=== PATIENT | male | born 1960 | race Caucasian/White ===

== ENCOUNTER 2022-12-19 09:43 | Outpatient (CLI) | payer OTHER, SELFPAY | END 2022-12-19 09:44 | disposition home or self-care (01) | PROVIDERS: PCP Family Medicine; Visit Provider Internal Medicine Clinical Cardiac Electrophysiology | DX: I48.91 Unspecified atrial fibrillation (principal) | CPT/HCPCS: 93225; 93226 ==

== ENCOUNTER 2023-04-06 14:25 | Emergency (ER) | payer OTHER, SELFPAY ==
[2023-04-06] VITALS (26 sets, daily range): BP systolic 91–113; BP diastolic 48–101; PULSE 59–147; RESP 18; TEMP 36.3; O2SAT 91–99; BMI 25.8
--- NOTE | 2023-04-06 14:44 | ED.GENADULT ---
HPI - General Adult General Chief complaint: Arrhythmia/Palpitations Stated complaint: Afib Time Seen by Provider: 04/06/23 14:36 History of Present Illness HPI narrative: Patient here from [facility] in [place] today for afib/ elevated heart rate. He was scheduled to have a colonoscopy which did not happen. HR was 160's there, given 1500 cc normal saline brought HR down to 140's. Sunday night was last oral intake per pt and . Off coumadin for the last 5 days for procedure. Feeling fatigued. Per patient and , perhaps flipped last night. has had 3-4 cardioversions in the past. 62-year-old man presenting to the emergency department with concern of rapid heart rate-atrial fibrillation in the 160s as noted in clinic prior to colonoscopy this morning. Was feeling much more fatigued last night. Notes a history of going in out of atrial fibrillation typically unaware though fatigue and sound in his voice is a tip-off to his . Two days ago was feeling quite well, putting up outdoor [place] lights. Has been going through colonoscopy prep anticipating colonoscopy this morning. Has not taken ?my drugs? this morning. This would include metoprolol. Coumadin has been held for 5 days. Has a history of cardioversions as well as cardiac ablations. Has been struggling with longstanding lightheadedness. This is in the midst of extensive workup apparently at [facility]. Related Data Home Medications Medication Instructions Recorded Confirmed atorvastatin 40 mg tablet 40 mg PO DAILY 04/06/23 04/06/23 cefadroxil 500 mg capsule 500 mg PO BID 04/06/23 04/06/23 metoprolol tartrate 25 mg tablet 25 mg PO BID 04/06/23 04/06/23 warfarin 1 mg tablet mg PO 04/06/23 warfarin 5 mg tablet 5 mg PO DAILY 04/06/23 04/06/23 Allergies Allergy/AdvReac Type Severity Reaction Status Date / Time No Known Drug Allergies Allergy Verified 04/06/23 14:30 Review of Systems Status of ROS: Reports: 6 or more systems reviewed and unremarkable except as noted in History and below [facility] Social History Smoking Status: Former smoker How often do you have a drink containing alcohol: 2-3 times a week How many standard drinks containing alcohol do you have on a typical day: 1 or 2 AUDIT-C Alcohol total score: 3 Non-prescribed substance use: denies use Exam Narrative: Exam Narrative: Pleasant. NAD. Defers somewhat to spouse in conversation. Cranial nerves 2-12 look to be intact. Easily conversant. Breathing easily. Skin is warm and dry. Extremities are without edema. Moving all extremities without difficulty. Lungs are clear. Heart is tachycardic. Abdomen is soft and nontender. Const: Vital Signs, click to edit/add: Vital Signs - 24 hr 04/06/23 14:31 04/06/23 14:36 04/06/23 14:37 Temperature 97.4 F L Pulse Rate 126 H 118 H Pulse Rate [Right Pulse Oximeter] 147 H Respiratory Rate 18 Blood Pressure 113/101 H Blood Pressure [Ri ght Upper Arm] 93/66 Pulse Oximetry 94 97 98 Oxygen Delivery Me thod Room Air 04/06/23 14:45 04/06/23 14:47 04/06/23 15:00 Temperature Pulse Rate 104 H 110 H 109 H Pulse Rate [Right Pulse Oximeter] Respiratory Rate Blood Pressure 107/94 H Blood Pressure [Ri ght Upper Arm] Pulse Oximetry 93 92 98 Oxygen Delivery Me thod 04/06/23 15:01 04/06/23 15:06 04/06/23 15:12 Temperature Pulse Rate 116 H 94 89 Pulse Rate [Right Pulse Oximeter] Respiratory Rate Blood Pressure 96/83 105/48 L 100/69 Blood Pressure [Ri ght Upper Arm] Pulse Oximetry 98 98 97 Oxygen Delivery Me thod 04/06/23 15:15 04/06/23 15:16 04/06/23 15:22 Temperature Pulse Rate 83 78 84 Pulse Rate [Right Pulse Oximeter] Respiratory Rate Blood Pressure 91/70 107/68 Blood Pressure [Ri ght Upper Arm] Pulse Oximetry 96 98 97 Oxygen Delivery Me thod 04/06/23 15:30 04/06/23 15:31 04/06/23 15:42 Temperature Pulse Rate 80 72 87 Pulse Rate [Right Pulse Oximeter] Respiratory Rate Blood Pressure 94/65 104/68 Blood Pressure [Ri ght Upper Arm] Pulse Oximetry 98 97 96 Oxygen Delivery Me thod 04/06/23 15:45 04/06/23 15:52 04/06/23 16:00 Temperature Pulse Rate 101 H 85 91 Pulse Rate [Right Pulse Oximeter] Respiratory Rate Blood Pressure 104/70 Blood Pressure [Ri ght Upper Arm] Pulse Oximetry 97 99 99 Oxygen Delivery Me thod 04/06/23 16:02 04/06/23 16:12 04/06/23 16:15 Temperature Pulse Rate 121 H 95 98 Pulse Rate [Right Pulse Oximeter] Respiratory Rate Blood Pressure 106/78 112/77 Blood Pressure [Ri ght Upper Arm] Pulse Oximetry 98 91 97 Oxygen Delivery Me thod 04/06/23 16:22 04/06/23 16:23 04/06/23 16:30 Temperature Pulse Rate 118 H 100 101 H Pulse Rate [Right Pulse Oximeter] Respiratory Rate Blood Pressure 112/77 Blood Pressure [Ri ght Upper Arm] Pulse Oximetry 98 98 97 Oxygen Delivery Me thod 04/06/23 16:31 04/06/23 16:41 Temperature Pulse Rate 64 59 L Pulse Rate [Right Pulse Oximeter] Respiratory Rate Blood Pressure 99/70 105/57 L Blood Pressure [Ri ght Upper Arm] Pulse Oximetry 98 98 Oxygen Delivery Me thod Documenting provider has reviewed patient's vital signs: yes Course Vital Signs Vital signs: Initial Vital Signs Temperature 97.4 F L 04/06/23 14:31 Temperature Source Temporal Artery Scan 04/06/23 14:31 Pulse Rate 147 H 04/06/23 14:31 Pulse Rhythm Regular 04/06/23 14:31 Respiratory Rate 18 04/06/23 14:31 Blood Pressure 93/66 04/06/23 14:31 Blood Pressure Mean 75 04/06/23 14:31 Blood Pressure Position Sitting 04/06/23 14:31 Pulse Oximetry 94 04/06/23 14:31 Oxygen Delivery Method Room Air 04/06/23 14:31 Vital Signs Temperature 97.4 F L 04/06/23 14:31 Pulse Rate 147 H 04/06/23 14:31 Respiratory Rate 18 04/06/23 14:31 Blood Pressure 93/66 04/06/23 14:31 Pulse Oximetry 94 04/06/23 14:31 Oxygen Delivery Method Room Air 04/06/23 14:31 Temperature 97.4 F L 04/06/23 14:31 Pulse Rate 59 L 04/06/23 16:41 Respiratory Rate 18 04/06/23 14:31 Blood Pressure 105/57 L 04/06/23 16:41 Pulse Oximetry 98 04/06/23 16:41 Oxygen Delivery Method Room Air 04/06/23 14:31 Medications Administered Medications: Discontinued Medications Generic Name Dose Route Start Last Admin Trade Name Jose PRN Reason Stop Dose Admin Diltiazem HCl 20 mg 04/06/23 14:47 04/06/23 15:03 Diltiazem 5 Mg/Ml Inj IVP 04/06/23 14:48 20 mg ONCE ONE Administration Medical Decision Making MDM Narrative Medical decision making narrative: It may be that could be cardioverted here. He is somewhat symptomatic. Sounds like has been less than 48 hours. They do emphasize that he goes in and out of this quickly. It seems as though in conversation with spouse in particular that the terms atrial fibrillation and tachycardia are used synonymously. So seems less clear as to duration of atrial fibrillation perhaps. Presuming that colon prep and some combination of dehydration likely triggered AFib with RVR. EKG confirms atrial fibrillation with RVR. IV fluids initiated. Given diltiazem. I would anticipate cardioversion. Checking chemistries. INR. Rate diminished significantly with 20 mg of diltiazem into the 80s and 90s though remained in atrial fibrillation. After conversation with Cardiology, finally confirmed that INR had been subtherapeutic at 1.9 on the last 2 measurements. Decided to hold on cardioversion. At this point Mr. Bailey spontaneously converted to normal sinus. Discussed returning to Coumadin verses initiating NOAC -- after long conversation it appears that Mr. Bailey is more comfortable sticking with Coumadin which he knows. I did manage to reach [facility] then as there had been some misunderstanding by me about where he had been receiving cardiac cares. They concur with recommendations for a NOAC but spouse has already been in communication with clinic for Coumadin management and again this is what they appear to be most comfortable with. Spouse would like to discuss further with his skill training program coordinator Dr. Ocampo before making any changes. Electrolytes normal. Creatinine noted at 1.4 No other changes in medication recommended as likely extenuating circumstance of colon prep triggering AFib with RVR. Lab Data Lab results reviewed: Yes I reviewed the patient's lab results Labs: Lab Results 04/06/23 Range/Units 15:07 WBC 11.33 H (4.50-11.00) K/uL RBC 5.00 (4.30-5.90) m/uL Hgb 16.8 (13.5-17.5) gm/dL Hct 50.3 (37.0-53.0) % MCV 101 H (80-100) fL MCH 34 (26-34) pg MCHC 33 (32-36) gm/dL RDW Coeff of Tracee 13.1 (11.5-15.5) % Plt Count 283 (140-440) K/uL Neut % (Auto) 78.9 H (42.0-72.0) % Lymph % (Auto) 11.3 L (20-44) % Hancock % (Auto) 8.9 (0.0-11.0) % Eos % (Auto) 0.4 (0.0-7.0) % Baso % (Auto) 0.2 (0.0-3.0) % Neut # (Auto) 8.90 H (1.7-7.0) K/uL Lymph # (Auto) 1.30 (0.90-2.90) K/uL Hancock # (Auto) 1.00 H (0.00-0.90) K/UL Eos # (Auto) 0.00 (0.00-0.50) K/uL Baso # (Auto) 0.00 (0.00-0.30) K/uL Abs Immat Gran (auto) 0.00 (0.00-0.30) K/uL Imm/Tot Granulo (auto) 0.3 % INR 1.12 H (0.91-1.10) Sodium 138 (135-149) mmol/L Potassium 4.6 (3.6-5.1) mmol/L Chloride 104 (96-114) mmol/L Carbon Dioxide 24 (20-32) mmol/L Anion Gap 10 (7-15) mEq/L BUN 19 (7-30) mg/dL Creatinine 1.4 (0.5-1.5) mg/dL Estimated Creat Clear 58.51 Estimated GFR 56 ml/min Glucose 136 H (60-115) mg/dL Calcium 8.9 (8.4-10.6) mg/dL Magnesium 2.0 (1.5-2.6) mg/dL TSH 1.630 (0.270-4.20) uIU/mL ECG Data Attestation: I personally reviewed and interpreted this ECG as follows: (1. EKG showing atrial fibrillation with RVR rate of 142. 2. Appears to have spontaneously converted with EKG showing normal sinus rhythm at a rate of 60. No ischemic changes evident.) Discharge Plan Discharge Clinical Impression: Atrial fibrillation with rapid ventricular response, Lightheadedness Patient Disposition: Home w/ Parent or Adult Condition: Improved Additional Instructions: I think you have a great plan regarding your Coumadin and follow-up. Thank you. This is a complicated case. Please call to [facility] specifically Dr. Ocampo to discuss next steps in evaluation and treatment. It sounds like you have a number of people that need to put their heads together. Of course return for worsening lightheadedness, shortness of breath or chest pain, persistent rapid heart rate. Prescriptions: No Action atorvastatin 40 mg tablet 40 mg PO DAILY cefadroxil 500 mg capsule 500 mg PO BID warfarin 5 mg tablet 5 mg PO DAILY warfarin 1 mg tablet PO metoprolol tartrate 25 mg tablet 25 mg PO BID Follow Up/Referrals: Cee Brenner DO [Primary Care Provider] - Stand Alone Forms: [employer] Info Instructions
[2023-04-06] MEDS: dilTIAZem 5 MG/ML inj 20 MG IVP (15:03)
[2023-04-06 15:20] LABS: Basophils Percent Auto 0.2 % (0.0-3.0); Eosinophils Percent Auto 0.4 % (0.0-7.0); Hematocrit 50.3 % (37.0-53.0); Hemoglobin* 16.8 gm/dL (13.5-17.5); Immature Granulocytes Pct Auto 0.3 %; Lymphocytes Percent Auto 11.3 % (20-44); Mean Corpuscular HGB Conc 33 gm/dL (32-36); Mean Corpuscular Hemoglobin 34 pg (26-34); Mean Corpuscular Volume 101 fL (80-100); Monocytes Percent Auto 8.9 % (0.0-11.0); Neutrophils Percent Auto 78.9 % (42.0-72.0); Platelet Count* 283 K/uL (140-440); RDW Coefficient of Variation % 13.1 % (11.5-15.5); White Blood Count* 11.33 K/uL (4.50-11.00)
[2023-04-06 15:32] LABS: INR 1.12 (0.91-1.10); Prothrombin Time 15.1 Seconds; Slide Review Reflex No
[2023-04-06 15:34] LABS: Chloride* 104 mmol/L (96-114); Sodium* 138 mmol/L (135-149)
[2023-04-06 15:35] LABS: Potassium* 4.6 mmol/L (3.6-5.1)
[2023-04-06 15:37] LABS: Creatinine* 1.4 mg/dL (0.5-1.5); Est. Creatinine Clearance* 58.51; Estimated Glomerular Filt Rate 56 ml/min
[2023-04-06 15:38] LABS: Anion Gap 10 mEq/L (7-15); Blood Urea Nitrogen* 19 mg/dL (7-30); Calcium* 8.9 mg/dL (8.4-10.6); Carbon Dioxide* 24 mmol/L (20-32); Glucose* 136 mg/dL (60-115)
--- NOTE | 2023-04-06 16:30 | ED.NURSE ---
Pt rate and rhythm change noted on air sampling and monitoring. Repeat EKG done and shown to .
== END 2023-04-06 18:30 | disposition home or self-care (01) ==
PROVIDERS: Emergency Provider Family Medicine; PCP Family Medicine
DX: I48.20 Chronic atrial fibrillation, unspecified (principal); R42 Dizziness and giddiness
CPT/HCPCS: 36415; 80048; 83735; 84443; 85025; 85610; 93005; 99284

== ENCOUNTER 2023-09-17 16:50 | Emergency (ER) | payer OTHER, MEDICARE, SELFPAY ==
[2023-09-17] VITALS (16 sets, daily range): BP systolic 100–136; BP diastolic 61–99; PULSE 77–130; RESP 16–18; TEMP 36.3; O2SAT 84–100; BMI 25.8
--- NOTE | 2023-09-17 19:10 | ED.GENADULT ---
HPI - General Adult General Chief complaint: Arrhythmia/Palpitations Stated complaint: Afib Time Seen by Provider: 09/17/23 19:10 History of Present Illness HPI narrative: Patient here wanting assistance with getting out of afib. He has had this before, goes in and out often, on coumadin. History of an ablation in the past. States he feels worn out. No chest pain reported. Working with [facility] , has an appointment with them on 10/12/2023. Recently had his metoprolol increased per [facility] to try to get him out of afib, hasn't worked. States he has been in afib for the last 1.5 weeks. 63-year-old man presenting to the emergency depart with concern of atrial fibrillation and fatigue. Is not short of breath or fatigued rest. Has been having episodes of lightheadedness when he is up and around or orthostatic at least. He wants to ?get out of AFib?. Does have a pending appointment I believe in October 11 or so with [facility]. Long-time history of atrial fibrillation and in an out of atrial fibrillation. He says having returned from [place] for a few weeks around the end of July. He has been in atrial fibrillation for the last week and a half after being in normal sinus he says for 4 days and then week and a half of AFib before that. Week and half ago in contact with [facility] he was told to increase his metoprolol from 50 mg to 100 mg daily. He says this has not made a dent. He is tired of being so exertionally fatigued. History also ablation and I believe cardioversion. Anticoagulated with Coumadin as noted and notes steady state low normal around 2 or 1.9 most recently. No changes to Coumadin. Checked about 3 weeks ago. Rate does not get above the low 100. Usually 90s to low 100 says. Related Data Home Medications ?Medication ?Instructions ?Recorded ?Confirmed atorvastatin 40 mg tablet 40 mg PO DAILY 04/06/23 04/06/23 cefadroxil 500 mg capsule 500 mg PO BID 04/06/23 04/06/23 warfarin 1 mg tablet mg PO 04/06/23 warfarin 5 mg tablet 5 mg PO DAILY 04/06/23 04/06/23 metoprolol succinate 100 mg 100 mg PO DAILY 09/17/23 09/17/23 tablet,extended release 24 hr Allergies Allergy/AdvReac Type Severity Reaction Status Date / Time No Known Drug Allergies Allergy Verified 04/06/23 14:30 Review of Systems Status of ROS: Reports: 6 or more systems reviewed and unremarkable except as noted in History and below [facility] Social History Smoking Status: Former smoker Do you use any of these nicotine containing products: None How often do you have a drink containing alcohol: 2-3 times a week How many standard drinks containing alcohol do you have on a typical day: 1 or 2 AUDIT-C Alcohol total score: 3 Non-prescribed substance use: denies use Exam Narrative: Exam Narrative: Pleasant. NAD. Breathing easily. Defers to spouse for answers to questions often. Darkly tanned. Extremities are well perfused without edema. Is breathing easily. Lungs are clear. Heart in an irregularly irregular rhythm. Const: Vital Signs, click to edit/add: Vital Signs - 24 hr 09/17/23 17:07 09/17/23 18:47 09/17/23 18:48 Temperature 97.3 F L Pulse Rate 80 85 Pulse Rate [Pulse Oximeter] 77 Pulse Rate [orthos tatic lying Pulse Oximeter] Pulse Rate [orthos tatic sitting Puls e Oximeter] Pulse Rate [orthos tatic standing Pul se Oximeter] Respiratory Rate 18 Blood Pressure 126/96 H Blood Pressure [Ri ght Upper Arm] 117/72 Blood Pressure [or thostatic lying Ri ght Arm] Blood Pressure [or thostatic sitting Right Arm] Blood Pressure [or thostatic standing ] Pulse Oximetry 100 99 99 Oxygen Delivery Me thod Room Air 09/17/23 19:00 09/17/23 19:05 09/17/23 19:15 Temperature Pulse Rate 79 78 92 Pulse Rate [Pulse Oximeter] Pulse Rate [orthos tatic lying Pulse Oximeter] Pulse Rate [orthos tatic sitting Puls e Oximeter] Pulse Rate [orthos tatic standing Pul se Oximeter] Respiratory Rate Blood Pressure 125/98 H Blood Pressure [Ri ght Upper Arm] Blood Pressure [or thostatic lying Ri ght Arm] Blood Pressure [or thostatic sitting Right Arm] Blood Pressure [or thostatic standing ] Pulse Oximetry 97 99 100 Oxygen Delivery Me thod 09/17/23 19:28 09/17/23 19:30 09/17/23 19:32 Temperature Pulse Rate 96 92 Pulse Rate [Pulse Oximeter] Pulse Rate [orthos tatic lying Pulse Oximeter] 120 H Pulse Rate [orthos tatic sitting Puls e Oximeter] 130 H Pulse Rate [orthos tatic standing Pul se Oximeter] 116 H Respiratory Rate Blood Pressure 100/61 Blood Pressure [Ri ght Upper Arm] Blood Pressure [or thostatic lying Ri ght Arm] 136/99 H Blood Pressure [or thostatic sitting Right Arm] 114/83 Blood Pressure [or thostatic standing ] 106/78 Pulse Oximetry 98 [facility]36 09/17/23 19:39 09/17/23 19:40 Temperature Pulse Rate 107 H 106 H Pulse Rate [Pulse Oximeter] Pulse Rate [orthos tatic lying Pulse Oximeter] Pulse Rate [orthos tatic sitting Puls e Oximeter] Pulse Rate [orthos tatic standing Pul se Oximeter] Respiratory Rate Blood Pressure 136/99 H 114/83 106/78 Blood Pressure [Ri ght Upper Arm] Blood Pressure [or thostatic lying Ri ght Arm] Blood Pressure [or thostatic sitting Right Arm] Blood Pressure [or thostatic standing ] Pulse Oximetry 84 L 96 [facility]23 19:45 09/17/23 20:00 09/17/23 20:02 Temperature Pulse Rate 111 H 87 96 Pulse Rate [Pulse Oximeter] Pulse Rate [orthos tatic lying Pulse Oximeter] Pulse Rate [orthos tatic sitting Puls e Oximeter] Pulse Rate [orthos tatic standing Pul se Oximeter] Respiratory Rate 16 Blood Pressure 126/91 H Blood Pressure [Ri ght Upper Arm] Blood Pressure [or thostatic lying Ri ght Arm] Blood Pressure [or thostatic sitting Right Arm] Blood Pressure [or thostatic standing ] Pulse Oximetry 90 90 98 [facility] 09/17/23 20:15 Temperature Pulse Rate 91 Pulse Rate [Pulse Oximeter] Pulse Rate [orthos tatic lying Pulse Oximeter] Pulse Rate [orthos tatic sitting Puls e Oximeter] Pulse Rate [orthos tatic standing Pul se Oximeter] Respiratory Rate Blood Pressure Blood Pressure [Ri ght Upper Arm] Blood Pressure [or thostatic lying Ri ght Arm] Blood Pressure [or thostatic sitting Right Arm] Blood Pressure [or thostatic standing ] Pulse Oximetry 97 Oxygen Delivery Me thod Documenting provider has reviewed patient's vital signs: yes Course Vital Signs Vital signs: Initial Vital Signs Temperature 97.3 F L 09/17/23 17:07 Temperature Source Temporal Artery Scan 09/17/23 17:07 Pulse Rate 77 09/17/23 17:07 Pulse Rhythm Irregular 09/17/23 17:07 Respiratory Rate 18 09/17/23 17:07 Blood Pressure 117/72 09/17/23 17:07 Blood Pressure Mean 87 09/17/23 17:07 Blood Pressure Position Sitting 09/17/23 17:07 Pulse Oximetry 100 09/17/23 17:07 Oxygen Delivery Method Room Air 09/17/23 17:07 Vital Signs Temperature 97.3 F L 09/17/23 17:07 Pulse Rate 77 09/17/23 17:07 Respiratory Rate 18 09/17/23 17:07 Blood Pressure 117/72 09/17/23 17:07 Pulse Oximetry 100 09/17/23 17:07 Oxygen Delivery Method Room Air 09/17/23 17:07 Temperature 97.3 F L 09/17/23 17:07 Pulse Rate 91 09/17/23 20:15 Respiratory Rate 16 09/17/23 20:00 Blood Pressure 126/91 H 09/17/23 20:02 Pulse Oximetry 97 09/17/23 20:15 Oxygen Delivery Method Room Air 09/17/23 17:07 Medical Decision Making MDM Narrative Medical decision making narrative: Mr. Bailey appears safe and vitally well. Spouse in particular is concerned about safety and passing out. I appreciate this concern. Would check hemoglobin and chemistries and INR. Monitor on school bus monitor. Discuss this case with customer acquisition specialist on-call. Not recommending further intervention at this time. Heart rate slows over time in the emergency department. Labs are reassuring and INR is in goal. Seems to have been more symptomatic with increase in metoprolol. Has not made a difference otherwise in tendency to atrial fibrillation it appears. I suspect that might feel improved with decrease in this dosing; return to prior. See patient discharge plan for further discussion/plan Medical Records Medical records reviewed: Yes I reviewed the patient's medical records Lab Data Lab results reviewed: Yes I reviewed the patient's lab results Labs: Lab Results 09/17/23 Range/Units 19:02 Hgb 15.5 (13.5-17.5) gm/dL INR 2.70 H (0.91-1.10) Sodium 134 L (135-149) mmol/L Potassium 4.7 (3.6-5.1) mmol/L Chloride 106 (96-114) mmol/L Carbon Dioxide 21 (20-32) mmol/L Anion Gap 7 (7-15) mEq/L BUN 20 (7-30) mg/dL Creatinine 1.0 (0.5-1.5) mg/dL Estimated Creat Clear 80.83 Estimated GFR 84 ml/min Glucose 77 (60-115) mg/dL Calcium 8.8 (8.4-10.6) mg/dL Magnesium 1.8 (1.5-2.6) mg/dL ECG Data Attestation: I personally reviewed and interpreted this ECG as follows: (Atrial fibrillation with RVR. Rate of 109) Discharge Plan Discharge Clinical Impression: Lightheadedness, Atrial fibrillation Patient Disposition: Home w/ Parent or Adult Condition: Stable Additional Instructions: Please take care in transitions giving your orthostatic lightheadedness. I do think that it is important that we get you back into a regular rhythm. However as recommended by your cardiology team, it appears that there is a safer way to do this than cardiovert tonight. Continue to take your Coumadin/warfarin at this time. Stay well-hydrated. Return for worsening lightheadedness, increasing persistent shortness of breath, chest pain, persistently high heart rate around 130. Given my conversation with your cardiology team, I would expect them to reach out to you tomorrow to schedule/discuss follow-up. As you described symptoms of fatigue that may certainly also be related to your metoprolol, I would decrease your total daily dose in half as discussed. Prescriptions: No Action atorvastatin 40 mg tablet 40 mg PO DAILY cefadroxil 500 mg capsule 500 mg PO BID warfarin 5 mg tablet 5 mg PO DAILY warfarin 1 mg tablet PO metoprolol succinate 100 mg tablet extended release 24 hr 100 mg PO DAILY Follow Up/Referrals: Cee Brenner DO [Primary Care Provider] - Stand Alone Forms: [employer] Info Instructions
[2023-09-17 19:35] LABS: Hemoglobin* 15.5 gm/dL (13.5-17.5)
[2023-09-17 20:00] LABS: Chloride* 106 mmol/L (96-114); Sodium* 134 mmol/L (135-149)
[2023-09-17 20:01] LABS: Potassium* 4.7 mmol/L (3.6-5.1)
[2023-09-17 20:02] LABS: Prothrombin Time 30.8 Seconds
[2023-09-17 20:03] LABS: Anion Gap 7 mEq/L (7-15); Carbon Dioxide* 21 mmol/L (20-32); Est. Creatinine Clearance* 80.83; Estimated Glomerular Filt Rate 84 ml/min
[2023-09-17 20:04] LABS: Blood Urea Nitrogen* 20 mg/dL (7-30); Calcium* 8.8 mg/dL (8.4-10.6); Glucose* 77 mg/dL (60-115); Magnesium* 1.8 mg/dL (1.5-2.6)
== END 2023-09-17 20:58 | disposition home or self-care (01) ==
PROVIDERS: Emergency Provider Family Medicine; PCP Family Medicine
DX: I48.91 Unspecified atrial fibrillation (principal)
CPT/HCPCS: 36415; 80048; 83735; 85018; 85610; 99284